=== PATIENT | male | born 1980 | race Caucasian/White ===

== ENCOUNTER 2024-08-21 13:21 | Emergency (ER) | payer MEDICAID, SELFPAY ==
--- OUTSIDE RECORDS SUMMARY | 2024-08-21 13:23 | XMS_ITS | Clinical Summary ---
Author Organization [facility] & [facility] Address [address] [place] [id number] Care Team Providers Care Bee Rancher Name Role Phone Unknown, Doctor Primary Care Provider Unavailabl e Allergies No known active allergies Medications No known medications Immunizations Name Administration Dates Next Due DTP 11/01/1986 HIB PRP-T (ActHIB,Hiberix) 12/06/1984 Hepatitis B (Peds) 09/30/1994,02/21/1994, 994 MMR 01/07/1994 Oral Polio Vaccine 11/01/1986 Td (Age >=7 Years) 03/07/1998 Tdap 07/19/2007 Social History Tobacco Use Types Packs/Day Years Used Date Smoking Tobacco: Never Assessed Sex and Gender Information Value Date Recorded Sex Assigned at Not on file Legal Sex Male 11:32 AM [employer]IDGE CARP[employer] Gender Identity Not on file Sexual Orientation Not on file Last Filed Vital Signs Vital Sign Reading Time Taken Comments Blood Pressure 140/74 05/20/2021 12:05 PM BRIDGE [employer] Pulse 122 05/20/2021 12:05 PM BRIDGE CARP[employer] Temperature 38.1 C (100.5 F) 05/20/2021 12:05 PM BRIDGE [employer] Respiratory Rate 18 05/20/2021 12:05 PM BRIDGE CARPENTER Oxygen Saturation 97% 05/20/2021 12:05 PM BRIDGE CARP[employer] Inhaled Oxygen Concentration - - Weight 109.8 kg (242 lb) 05/20/2021 12:05 PM BRIDGE CARPENTER Height - - Body Mass Index - - Plan of Treatment Not on file Insurance [facility] [place] Care Teams Bee Rancher Relationship Specialty Start Date End Date Unknown, Doctor . PCP - General 05/20/21
[2024-08-21 13:56] VITALS: BP 135/86; PULSE 83; RESP 18; TEMP 36.9; O2SAT 97; BMI 34.6
--- NOTE | 2024-08-21 14:13 | CRLHL7_ITS ---
For Patients: As a result of the Cures Act, medical imaging exams and procedure reports are released immediately into your electronic medical record. You may view this report before your referring provider. If you have questions, please contact your health care provider. INDICATION: CUT NEAR DIP. TECHNIQUE: Left 2nd finger radiographs 3 views COMPARISON: None FINDINGS: Bones: Alignment is normal. Minimal cortical lucency along the radial margin of the 2nd middle phalanx underlying the region of soft tissue irregularity. Otherwise, no evidence of an acute fracture. Joint spaces: Mild joint space narrowing at the PIP joint unremarkable metacarpophalangeal joint. Soft tissues: Focal soft tissue irregularity overlying the 2nd digit DIP joint. No radiopaque foreign bodies are noted. IMPRESSION: Minimal cortical lucency along the radial margin of the 2nd middle phalanx underlying the region of soft tissue irregularity may reflect a small cortical fracture. No radiopaque foreign bodies. Dictated by Lionel Talbert MD @ 08/21/2024 3:07:33 PM (Electronically Signed)
--- OUTSIDE RECORDS SUMMARY | 2024-08-21 14:22 | XMS_ITS | Clinical Summary ---
Author Organization [facility] Address [address] [place] [id number] Care Team Providers Care Crm Functional Analyst Name Role Phone Unknown, Doctor Primary Care [...] on file Legal Sex Male 11:32 AM [employer]PER[employer] Gender Identity Not on file Sexual Orientation Not on file Last Filed Vital Signs Vital Sign Reading Time Taken Comments Blood Pressure 140/74 05/20/2021 12:05 PM [employer] Pulse 122 05/20/2021 12:05 PM [employer] Temperature 38.1 C (100.5 F) 05/20/2021 12:05 PM [employer] Respiratory Rate 18 05/20/2021 12:05 PM [employer]PER[employer] Oxygen Saturation 97% 05/20/2021 12:05 PM [employer] Inhaled Oxygen Concentration - - Weight 109.8 kg (242 lb) 05/20/2021 12:05 PM [employer] SUPER[employer] Height - - Body Mass Index - - Plan of Treatment Not on file Insurance [facility] [place] Care Teams Crm Functional Analyst Relationship Specialty Start Date End Date Unknown, Doctor . PCP - General 05/20/21
--- NOTE | 2024-08-21 14:34 | ED_ITS ---
HPI - Extremity Injury (Upper) General Chief Complaint: Extremity Pain/Injury, Upper Stated Complaint: left pointer finger injury Time Seen by Provider: 08/21/24 14:05 Source: patient Mode of arrival: ambulatory Limitations: no limitations History of Present Illness HPI narrative: Patient is a 43-year-old female presenting to the emergency department for laceration to the left 2nd digit near the PIP. He states he was using a golf ball trimmer when he lost hold of it and cut him. Denies any numbness to the finger. States he has full range of motion of that finger. No other injuries noted. Last tetanus was in 2007. Related Data Previous Rx's ?Medication ?Instructions ?Recorded cephalexin 500 mg capsule 500 mg PO QID #20 caps 08/21/24 Allergies Allergy/AdvReac Type Severity Reaction Status Date / Time No Known Drug Allergies Allergy Verified 08/21/24 13:56 Review of Systems Narrative: Pertinent systems reviewed and were negative unless stated in HPI PFSH PFSH Social History Smoking Status: Never smoker How often do you have a drink containing alcohol: never AUDIT-C Alcohol total score: 0 Non-prescribed substance use: denies use Exam Narrative: Exam Narrative: Const: Well-nourished, Well-developed, in mild distress Eyes: PERRL, no conjunctival injection, and symmetrical lids HENT: Atraumatic external nose and ears. Moist mucous membranes. MSK:Extremities w/o deformity, full range of motion of left index finger. Skin: Warm, Dry. Laceration to left index finger. Neuro: Normal Muscle tone, No focal neurological deficits. Psych: Awake, Alert, & Oriented x3. Appropriate mood and affect. Const: Vital Signs, click to edit/add: Vital Signs - 24 hr 08/21/24 13:56 Temperature 98.5 F Pulse Rate [Pulse Oximeter] 83 Respiratory Rate 18 Blood Pressure [Ri ght Upper Arm] 135/86 Pulse Oximetry 97 Oxygen Delivery Me thod Room Air Course Vital Signs Vital signs: Initial Vital Signs Temperature 98.5 F 08/21/24 13:56 Temperature Source Temporal Artery Scan 08/21/24 13:56 Pulse Rate 83 08/21/24 13:56 Respiratory Rate 18 08/21/24 13:56 Blood Pressure 135/86 08/21/24 13:56 Blood Pressure Mean 102 08/21/24 13:56 Pulse Oximetry 97 08/21/24 13:56 Oxygen Delivery Method Room Air 08/21/24 13:56 Vital Signs Temperature 98.5 F 08/21/24 13:56 Pulse Rate 83 08/21/24 13:56 Respiratory Rate 18 08/21/24 13:56 Blood Pressure 135/86 08/21/24 13:56 Pulse Oximetry 97 08/21/24 13:56 Oxygen Delivery Method Room Air 08/21/24 13:56 Temperature 98.5 F 08/21/24 13:56 Pulse Rate 83 08/21/24 13:56 Respiratory Rate 18 08/21/24 13:56 Blood Pressure 135/86 08/21/24 13:56 Pulse Oximetry 97 08/21/24 13:56 Oxygen Delivery Method Room Air 08/21/24 13:56 Medications Administered Medications: Discontinued Medications Generic Name Dose Route Start Last Admin Trade Name Freq PRN Reason Stop Dose Admin Diphtheria/Tetanus/Acell Pertussis 0.5 ml 08/21/24 14:35 08/21/24 14:52 Tetanus/Diphth/Pertussis 0.5 Ml Syringe IM 08/21/24 14:36 0.5 ml .ONCE ONE Administration MDM - Extremity Injury (Upper) MDM Narrative Medical decision making narrative: Patient is a 43-year-old male presenting for laceration to his left 2nd finger near the D IP. Will do an x-ray to make sure there is no joint involvement. He has full range of motion of that finger no signs of tendon involvement. Good sensation and perfusion to the tip of the finger. X-ray shows a small cortical lucency along the radial margin of the 2nd middle finger phalanx that may reflect a small cortical fracture. I do not believe this will change her management. I will send him home on antibiotics. He did tolerate the procedure well. It was a rather irregular laceration so multiple sutures in different spots were needed to close up every part. He will be discharged on Keflex. He is agreeable to this plan Imaging Data Left 2nd finger x-ray: Attestation: I have reviewed the pertinent imaging results. Radiologist's impression: Minimal cortical lucency along the radial margin of the 2nd middle phalanx underlying the region of soft tissue irregularity may reflect a small cortical fracture. No radiopaque foreign bodies. Dictated by Lionel Talbert MD @ 08/21/2024 3:07:33 PM Discharge Plan Discharge Clinical Impression: Laceration Patient Disposition: Home, Self-Care Condition: Stable Instructions: Finger Laceration (ED) Additional Instructions: Follow-up with your primary care provider or urgent care in the next 7 to 14 days to have the 7 sutures removed. For next 6 months, once sutures are removed, whenever you go outside put a dab of sunscreen over the laceration site to improve scar appearance. Topical antibiotics are not necessary at this time. Patient can shower but do not submerge the laceration until sutures are removed. I recommend no heavy lifting until sutures are removed as sudden movement can cause a laceration to open back up. Take the antibiotics as directed Prescriptions: New cephalexin 500 mg capsule 500 mg PO QID Qty: 20 0RF Follow Up/Referrals: Provider,Not a Local [Primary Care Provider] - Stand Alone Forms: [facility] Info Instructions Procedures Laceration middle finger laceration: Name of person performing procedure: Wilmar Camejo Site: hand (Left 2nd finger near DIP) Side (If applicable): left Size (cm): 1.5 Description: stellate, irregular and clean Depth: simple, single layer Local Anesthetic: lidocaine 1% (Digital nerve block) Amount of anesthesia used (mL): 5 Pre-repair: wound explored, irrigated extensively and deep structures intact Skin layer closed with: nylon Size (cm): 5-0 Number of sutures: 7 Technique: simple, interrupted
[2024-08-21] MEDS: TETANUS/DIPHTH/PERTUSSIS 0.5 ML SYRINGE IM (14:52)
[2024-08-21] MEDS: LIDOCAINE 1%-EPI 1:100,000 5 ML INFILTRATI (16:14)
== END 2024-08-21 16:19 | disposition home or self-care (01) ==
PROVIDERS: Emergency Provider Student in an Organized Health Care Education/Training Program
DX: S61.211A Laceration without foreign body of left index finger without damage to nail, initial encounter (principal); W29.3XXA Contact with powered garden and outdoor hand tools and machinery, initial encounter
CPT/HCPCS: 12001; 73140; 90471; 90715; 99283